=== PATIENT | female | born 1935 | race Caucasian/White ===

== ENCOUNTER 2018-03-20 06:24 | Inpatient (IN) ==
[2018-03-09 14:28] LABS: Basophils # 0.1 10*3/uL (0.0-0.2); Basophils % 0.9 % (0.0-0.8); Eosinophils # 0.2 10*3/uL (0.0-0.87); Eosinophils % 2.4 % (0.00-10.9); Hematocrit 45.2 VOL% (35.7-47.0); Immature Granulocytes % 0.3 %; Immature Granulocytes Absolute 0.03 #; Lymphocytes # 2.8 10*3/uL (1.4-4.0); Lymphocytes % 30.6 % (21.3-54.2); Mean Corpuscular HGB Conc 33.2 GM/DL (32-36); Mean Corpuscular Hemoglobin 31 PG (27-34); Mean Corpuscular Volume 92.2 FL (87-102); Mean Platelet Volume 8.9 FL (9.6-12.0); Monocytes # 1.1 10*3/uL (0.11-0.8); Monocytes % 11.9 % (1.7-12.7); Neutrophils % 53.9 % (38.7-73.9); Platelet Count 221 T/CUMM (130-400); Red Cell Distribution Width 12.3 % (9.3-17.3); White Blood Count 9.3 T/CUMM (4-12)
[2018-03-09 14:41] LABS: Alanine Aminotransferase 25 U/L (13-56); Albumin 3.7 G/DL (3.4-5.0); Alkaline Phosphatase 105 U/L (45-117); Aspartate Amino Transferase 22 U/L (0-37); Bilirubin,Total < 0.39 MG/DL (0.2-1.0); Blood Urea Nitrogen 17 MG/DL (7-18); Calcium 9.2 MG/DL (8.5-10.1); Glucose 89 MG/DL (74-106); Potassium 4.2 MMOL/L (3.5-5.1); Sodium 136 MMOL/L (136-145); Total Protein 7.5 G/DL (6.4-8.3)
[~2018-03-20 06:24] MED LIST: DIAZEPAM 5 MG TABLET ONE; PANTOPRAZOLE 40 MG TABLET PO ONE; SCOPOLAMINE 1.5 MG PATCH TRANSDERM ONE; ceFAZolin 1,000 MG VIAL ONE; ceFAZolin 1,000 MG in SYRINGE 1 EACH IV ONE
[2018-03-20] MEDS ORDERED: PANTOPRAZOLE 40 MG TABLET PO STA (07:43)
[2018-03-20] MEDS ORDERED: DIAZEPAM 5 MG TABLET PO STA (07:43)
[2018-03-20] MEDS: LACTATED RINGERS 1,000 ML IV SCH ×3 (08:00→20:09)
[2018-03-20] MEDS ORDERED: HEPARIN 5,000 UNIT/1 ML VIAL ONE (08:15)
[2018-03-20] MEDS ORDERED: LIDOCAINE 1% 20 ML VIAL ONE (08:16)
[2018-03-20] MEDS ORDERED: NALOXONE 0.4 MG/ML VIAL IV PRN (09:59)
[2018-03-20] MEDS ORDERED: PROMETHAZINE 25 MG/1 ML VIAL IM PRN (09:59)
[2018-03-20] MEDS ORDERED: ONDANSETRON 4 MG/2 ML VIAL IV PRN ×2 (09:59→11:22)
[2018-03-20] MEDS ORDERED: oxyCODONE/ACETAMINOPHEN 5-325 MG TABLET PO PRN (09:59)
[2018-03-20] MEDS ORDERED: HYDROmorphone 2 MG/1 ML VIAL IV PRN ×3 (09:59→11:22)
[2018-03-20] MEDS ORDERED: DEXTROSE 50% 25 GM/50 ML VIAL IV PRN (09:59)
[2018-03-20] MEDS ORDERED: GLUCAGON 1 MG VIAL IM PRN (09:59)
[2018-03-20] MEDS ORDERED: PROPOFOL 200 MG/20 ML VIAL IV ONE (10:55)
[2018-03-20] MEDS ORDERED: ETOMIDATE 40 MG/20 ML VIAL IV ONE (10:56)
[2018-03-20] MEDS ORDERED: fentaNYL 100 MCG/2 ML VIAL ONE (10:56)
[2018-03-20] MEDS ORDERED: ROCURONIUM 100 MG/10 ML VIAL IV ONE (10:56)
[2018-03-20] MEDS ORDERED: SEVOFLURANE 1 UNIT/15 MINUTE INH ONE (10:56)
[2018-03-20] MEDS ORDERED: ONDANSETRON 4 MG/2 ML VIAL ONE (10:58)
[2018-03-20] MEDS ORDERED: DEXAMETHASONE 10 MG/1 ML VIAL ONE (10:58)
[2018-03-20] MEDS ORDERED: PHENYLEPHRINE 1 MG/10 ML SYRINGE IV ONE (10:59)
[2018-03-20] MEDS ORDERED: PROTAMINE SULFATE 50 MG/5 ML VIAL IV ONE (10:59)
[2018-03-20] MEDS ORDERED: PHENYLEPHRINE 10 MG/1 ML VIAL IV ONE (10:59)
[2018-03-20] MEDS ORDERED: NITROGLYCERIN DRIP 50 MG/250 ML BOTTLE IV ONE (10:59)
[2018-03-20] MEDS ORDERED: ACETAMINOPHEN 1,000 MG/100 ML VIAL IV ONE (10:59)
[2018-03-20] MEDS ORDERED: GLYCOPYRROLATE 0.4 MG/2 ML VIAL ONE (10:59)
[2018-03-20] MEDS ORDERED: NEOSTIGMINE 10 MG/10 ML VIAL ONE (11:00)
[2018-03-20] MEDS ORDERED: LACTATED RINGERS 1,000 ML IV ONE (11:00)
[2018-03-20] MEDS ORDERED: SODIUM CHLORIDE 0.9% 1,000 ML IV ONE (11:00)
[2018-03-20] MEDS ORDERED: SODIUM CHLORIDE 0.9% 250 ML IV ONE (11:00)
[2018-03-20] MEDS: NITROPRUSSIDE 100 MG in DEXTROSE 5% 250 ML IV SCH (11:57)
[2018-03-20] MEDS: PHENYLEPHRINE DRIP 40 MG/250 ML PREMIX IV SCH (12:05)
[2018-03-20] MEDS: DULoxetine 30 MG CAPSULE PO SCH (20:08)
[2018-03-20] MEDS: ZALEPLON 5 MG CAPSULE PO SCH (21:58)
[2018-03-21] MEDS: oxyCODONE/ACETAMINOPHEN 5-325 MG TABLET PO PRN ×2 (01:04→16:38)
[2018-03-21] MEDS: LACTATED RINGERS 1,000 ML IV SCH ×2 (05:33)
[2018-03-21] MEDS: NITROPRUSSIDE 100 MG in DEXTROSE 5% 250 ML IV SCH (10:15)
[2018-03-21] MEDS: PHENYLEPHRINE DRIP 40 MG/250 ML PREMIX IV SCH (10:15)
[2018-03-21] MEDS: BISOPROLOL 5 MG TABLET PO SCH (10:19)
[2018-03-21] MEDS: ASPIRIN CHEW 81 MG TABLET PO SCH (10:19)
[2018-03-21] MEDS: CYANOCOBALAMIN 500 MCG TABLET PO SCH (10:20)
[2018-03-21] MEDS: hydroCHLOROthiazide 25 MG TABLET PO SCH (10:20)
[2018-03-21] MEDS: LORazepam 0.5 MG TABLET PO SCH (10:21)
[2018-03-21] MEDS: DOCUSATE SODIUM 100 MG CAPSULE PO SCH (10:21)
[2018-03-21] MEDS: PANTOPRAZOLE 40 MG TABLET PO SCH (10:21)
[2018-03-21] MEDS: POTASSIUM CHLORIDE 10 MEQ TABLET PO SCH (10:21)
[2018-03-21] MEDS ORDERED: ACETAMINOPHEN 500 MG TABLET PO PRN (11:10)
[2018-03-21] MEDS: ZALEPLON 5 MG CAPSULE PO SCH (21:01)
[2018-03-21] MEDS: DULoxetine 30 MG CAPSULE PO SCH (21:01)
[2018-03-22] MEDS: oxyCODONE/ACETAMINOPHEN 5-325 MG TABLET PO PRN (04:01)
[2018-03-22] MEDS: LORazepam 0.5 MG TABLET PO SCH (09:49)
[2018-03-22] MEDS: BISOPROLOL 5 MG TABLET PO SCH (09:50)
[2018-03-22] MEDS: hydroCHLOROthiazide 25 MG TABLET PO SCH (09:50)
[2018-03-22] MEDS: POTASSIUM CHLORIDE 10 MEQ TABLET PO SCH (09:51)
[2018-03-22] MEDS: CYANOCOBALAMIN 500 MCG TABLET PO SCH (09:51)
[2018-03-22] MEDS: DOCUSATE SODIUM 100 MG CAPSULE PO SCH (09:51)
[2018-03-22] MEDS: ASPIRIN CHEW 81 MG TABLET PO SCH (09:51)
[2018-03-22] MEDS: PANTOPRAZOLE 40 MG TABLET PO SCH (09:52)
[2018-03-22 12:45] VITALS: BP 102/60
== END 2018-03-22 13:52 | disposition home health service (06) | DRG 39 ==
LOC: N.SDSINP 06:24 → N.ICU 11:53 → N.4E 03-21 10:54
PROVIDERS: ADMIT Surgery; ATTEND Surgery